=== PATIENT | male | born 1965 | race Caucasian/White ===

== ENCOUNTER 2021-08-23 15:46 | Inpatient (IN) | payer OTHER, SELFPAY ==
--- NOTE | ~2021-08-23 | CT_ITS ---
EXAMINATION: CT diagnostic chest w con DATE: 08/23/2021 19:43 INDICATION: Abnormal Chest CT 6 months ago. Weakness TECHNIQUE: Computed tomography (CT) of the chest was performed with 70 mL Omnipaque-350 intravenous c ontrast. Additional 3D reconstructions utilizing coronal maximum intensity projection (MIP) were perf ormed. Automated exposure control and iterative reconstruction technique were employed. The dose-aaliyah th product was 153.03 mGy-cm. COMPARISON: None FINDINGS: Mild emphysema. Diffuse mild bronchiectasis throughout both lungs with bronchial wall thickening and scattered mucous plugging. There is additional bubbly mucus throughout the trachea and bilateral main stem bronchi. Scattered subcentimeter solid and subsolid pulmonary nodules involving all lobes of bot h lungs, the largest in the right upper lobe measuring 8mm. More numerous tiny centrilobular nodules with tree-in-bud pattern in the left lower lobe and to lesser degree in the lingula consistent with e ndobronchial spread of disease. Poorly defined approximately 1.5 x 2.0 cm region of consolidation wit h air bronchograms in the left lower lobe. No pulmonary edema, pleural effusion or pneumothorax. Hear t size is normal. Mild likely reactive right hilar lymphadenopathy. Ectatic ascending thoracic aorta which measures up to 3.7 cm in maximal diameter. Normal caliber descending thoracic aorta. There is c alcified atherosclerosis of the visualized proximal abdominal aorta as well as at the origin of the s uperior mesenteric and bilateral renal arteries. Additional atherosclerotic disease with severe moder ate (50-70%) stenosis along the splenic artery. Moderate thoracic spondylosis with chronic appearing mild anterior wedging of several lower thoracic vertebral bodies. IMPRESSION: 1. Diffuse bronchiectatic changes with bronchial wall thickening, scattered mucous in the bronchi, tr ee-in-bud opacities and multiple subcentimeter solid and some solid nodules scattered throughout both lungs most likely acute on chronic bronchopneumonia. 2. Mild emphysema. 3. Ectatic ascending thoracic aorta measuring up to 3.7 cm. 4. Likely reactive mild right hilar lymphadenopathy. Reviewed, dictated and finalized at location A. RETE WORKER IMPRESSION: 1. Diffuse bronchiectatic changes with bronchial wall thickening, scattered muc ous in the bronchi, tree-in-bud opacities and multiple subcentimeter solid and some solid nodules scattered throughout both lungs most likely acute on chronic bronchopneumonia. 2. Mild emphysema. 3. Ectatic ascending thoracic aorta measuring up to 3.7 cm. 4. Likely reactive mild right hilar lymphadenopathy.
--- NOTE | ~2021-08-23 | XR_ITS ---
EXAMINATION: XR chest 1V portable DATE: 08/24/2021 05:47 INDICATION: Intubation. TECHNIQUE: A single frontal view of the chest was obtained. COMPARISON: Chest single view 08/23/2021, chest CT 08/23/2021 FINDINGS: The lungs are hyperexpanded with lucencies, consistent with emphysema. There are mild airsp jess opacities in the upper lobes and left lower lobe. No pleural effusion or pneumothorax. The heart size is normal. The endotracheal tube tip is 6.0 cm above the lizy. There are old healed right rib fractures. IMPRESSION: 1. Mild airspace opacities in the upper lobes and left lower lobe, consistent with pneumonia. 2. Emphysema. Reviewed, dictated and finalized at location A. SANDER IMPRESSION: 1. Mild airspace opacities in the upper lobes and left lower lobe, consistent w ith pneumonia. 2. Emphysema.
--- NOTE | ~2021-08-23 | XR_ITS ---
EXAMINATION: XR chest 1V portable INDICATION: Weakness TECHNIQUE: Portable AP chest at 1659 hours COMPARISON: 09/12/2018 FINDINGS: The lungs are hyperinflated but free of acute opacities. Healed right-sided rib fractures a re noted. There is no pleural effusion or pneumothorax. The cardiomediastinal silhouette is normal. IMPRESSION: 1. Hyperinflation without acute cardiopulmonary abnormality. Reviewed, dictated and finalized at location B. NG MACHINE FEEDER
--- NOTE | 2021-08-23 16:03 | ECG_ITS ---
Measurements Intervals [place] Rate: 89 P: 264 OR: 150 QRS: 131 QRSD: 97 T: 88 QT: 340 QTc: 415 Interpretive Statements BASELINE ARTIFACT ECTOPIC ATRIAL RHYTHM NO PREVIOUS ECG AVAILABLE FOR COMPARISON Electronically Signed On 08-24-2021 12:15:49 FRONT END DRUPAL DEVELOPER by Jaime Morton M.D.
[2021-08-23] MEDS: LACTATED RINGERS 1,000 ML 999 ML IV CONT (16:05)
[2021-08-23 16:07] VITALS: BP 91/76; PULSE 87; RESP 22; TEMP 35.7; O2SAT 94
--- NOTE | 2021-08-23 16:22 | ED.WEAKNESS ---
HPI - Weakness General Chief complaint: Unspecified Stated complaint: AMB Time Seen by Provider: 08/23/21 15:55 Source: patient, family, EMS and RN notes reviewed Mode of arrival: EMS Limitations: physical limitation History of Present Illness HPI Narrative: I interviewed the ex- who has been trying to take care of the patient. She states that he had double pneumonia proximally 8-10 months ago and was at [facility]. He then went home with his son for 2-3 weeks and then wanted to go back home. He apparently has been at home for the last 6-8 months and lays in bed does not eat barely drinks. Family thinks that he is significantly depressed due to the loss of his mother, daughter and a brother all in the last 2 years. He was being cared for by a girlfriend but apparently they have . Ex- states she has been trying to talk him into coming to the hospital for the last 3 days. EMS reports that patient was tachycardic in the 120s and had blood pressure 75/30. EMS gave him 1 L of LR in route which improved his blood pressure. EMS also reported that he has pulmonary congestion with a wet cough. He reports he has some kind of a heart problem. He denies being suicidal. MD Complaint: generalized weakness Onset (ago): month(s) (4) Duration: constant and progressively worsening Location: generalized Migration: none Severity: severe Relieving factors: none Exacerbating factors: movement and exertion Associated symptoms: loss of appetite Related Data Home Medications Medication Instructions Recorded Confirmed carvedilol 3.125 mg PO DAILY 08/23/21 08/23/21 citalopram 20 mg PO DAILY 08/23/21 08/23/21 fluticasone propion-salmeterol 500 inh INHALATION BID 08/23/21 08/23/21 [Advair Diskus] ipratropium-albuterol [Combivent 1 puff INHALATION Q6H PRN 08/23/21 08/23/21 Respimat] lisinopril 5 mg PO DAILY 08/23/21 08/23/21 montelukast 10 mg PO DAILY 08/23/21 08/23/21 pantoprazole 40 mg PO DAILY 08/23/21 08/23/21 theophylline 400 mg PO DAILY 08/23/21 08/23/21 torsemide 20 mg PO DAILY 08/23/21 08/23/21 umeclidinium [Incruse Ellipta] 62.5 inh INHALATION DAILY 08/23/21 08/23/21 Allergies Allergy/AdvReac Type Severity Reaction Status Date / Time morphine Allergy Unknown Verified 08/23/21 16:14 Review of Systems Review of Systems: review of systems obtained from ex- Constitutional: Constitutional: Denies chills and Denies fever(s) Respiratory: Respiratory: Denies cough Gastrointestinal: Gastrointestinal: Denies nausea and Denies vomiting [facility] Past Medical History Medical History (Updated 08/23/21 @ 20:00 by Background Daann) Aortic valve disease Congestive heart failure COPD (chronic obstructive pulmonary disease) Depression History of CVA (cerebrovascular accident) Hypertension Social History Social History (Updated 08/23/21 @ 16:38 by Joseph Bailey MD) Smoking packs per day: 1 Smoking cigarettes per day: 20.0 Smoking status: Current every day smoker Exam Const: General: alert, awake and ill appearing chronically Nutritional Appearance: cachectic, malnourished and thin Orientation/consciousness: patient oriented x3 HENMT: Head: normal to inspection Ears: external ears normal Mouth: Yes dry mucous membranes Eyes: Conjunctivae: conjunctivae normal Pupils: Equal, round and reactive pupils present EOM: EOMs intact bilaterally Neck: Neck: normal visual inspection and no meningeal signs Resp: Effort & Inspection: tachypneic Auscultation: crackles diffuse and rhonchi throughout Cardio: Rate: regular rate Rhythm: regular rhythm GI: GI Palp: Yes Soft to palpation, No Tenderness to palpation present (GI) and No Guarding due to palpation present (GI) Auscultation: normal bowel sounds Back/Spine/Pelvis: Cervical Spine: cervical ROM normal Thoracic/Lumbar Spine: thoraco-lumbar ROM normal Skin: General skin exam: abnormal elasticity, pallor and turgor decreased Neuro: Gen
--- NOTE | 2021-08-23 16:28 | PC.NURSE ---
Unable to obtain EKG at this time.
[2021-08-23 16:58] LABS: Basophils Absolute Auto 0.01 K/mm3 (0.00-0.10); Basophils Percent Auto 0.1 % (0.0-1.0); Hematocrit 47.4 % (40.0-54.0); Hemoglobin 15.9 g/dL (14.0-18.0); Immature Granulocyte Absolute 0.02 K/mm3 (0.00-0.00); Immature Granulocyte Percent A 0.3 % (0.0-0.0); Lymphocytes Absolute Auto 0.78 K/mm3 (1.10-4.50); Lymphocytes Percent Auto 10.8 % (18.0-42.0); Mean Corpuscular HGB Conc 33.5 g/dL (32.0-36.0); Mean Corpuscular Hemoglobin 31.4 pg (27.0-31.0); Mean Corpuscular Volume 93.5 fL (78.0-102.0); Mean Platelet Volume 10.4 fl (8.7-11.0); Monocytes Absolute Auto 0.45 K/mm3 (0.10-0.90); Monocytes Percent Auto 6.2 % (2.0-11.0); Neutrophils Percent Auto 82.6 % (50.0-70.0); Platelet Count Result 150 K/mm3 (150-420); Red Blood Count 5.07 M/mm3 (4.70-6.10); Red Cell Distribution Width 12.9 % (11.6-14.4); White Blood Count 7.2 K/mm3 (4.8-10.8)
[2021-08-23 17:10] LABS: INR 1.2; Partial Thromboplastin Time 32.4 SEC (23.90-30.70); Prothrombin Time 12.8 Seconds (9.50-12.10)
[2021-08-23 17:11] LABS: Alanine Aminotransferase 17 U/L (16-63); Alkaline Phosphatase 97 U/L (46-116); Anion Gap 4 mmol/L (8-16); Aspartate Amino Transferase 23 U/L (15-37); Bilirubin,Total 0.6 mg/dL (0.00-1.00); Blood Urea Nitrogen 43 mg/dL (7-18); CRP 8.1 mg/dL (0.0-0.9); Calcium 9.1 mg/dL (8.5-10.1); Carbon Dioxide 41 mmol/L (21-32); Chloride 85 mmol/L (98-108); Estimated CRCL calculation 33 ml/min; Estimated Glomerular Filt Rate > 60; Glucose 98 mg/dL (70-99); Osmolality Calculated 280 mOsm/kg (285-295); Potassium 4.6 mmol/L (3.5-5.1); Sodium 130 mmol/L (136-145); Total Protein 6.3 g/dL (6.4-8.2)
[2021-08-23 17:16] LABS: Lactic Acid Reflex 3.7 mmol/L (0.4-2.0)
[2021-08-23 18:05] LABS: Add Urine Microscopic? NO; Appearance Urine Clear (Clear); Bilirubin Urine Negative (Negative); Blood Urine Negative (Negative); Color Urine Yellow (Yellow); Glucose Urine UA Negative (Negative); Ketones Urine Negative (Negative); Leukocyte Esterase Ur Negative LEU/UL (Negative); Nitrate Urine Negative (Negative); Protein Urine Negative (Negative); Specific Grav Ur <= 1.005 (1.010-1.020); Urobilinogen Urine 0.2 mg/dL (0.2-1.0); pH Urine 5.5 (5.0-8.0)
[2021-08-23 18:24] VITALS: BP 133/117; PULSE 113; RESP 24; O2SAT 96
[2021-08-23] MEDS: HYDROmorphone HCL INJ (*CRX) 2 MG/ML VIAL 0.5 MG IV PUSH (18:25)
[2021-08-23] MEDS: SODIUM CHLORIDE 0.9% IV 1,000 ML 75 ML IV CONT (18:41)
[2021-08-23 18:55] LABS: NT Pro B Type Natriuretic Pept 454 pg/mL (0-125)
--- NOTE | 2021-08-23 19:05 | PC.NURSE ---
Floor and registration notified of pt full admission status. Room assignment of 207 received.
[2021-08-23 19:28] LABS: Lactic Acid Reflex 3.7 mmol/L (0.4-2.0)
--- NOTE | 2021-08-23 19:32 | PC.NURSE ---
Phone report given to Arleen, 2nd floor RN.
--- NOTE | 2021-08-23 20:15 | ADMGEN ---
This patient, Cipriano Guzman, was admitted to 2nd Floor Room 207-2. Patient/family oriented to hospital policies and general routines including ID bracelet, bed and alarms, pain management, procedures, bathroom and other care routines, personal items, smoking policy, room service/diet, and visiting hours. Information on how to activate the Rapid Response Team has been discussed. Patient/Family are encouraged to report perceived risks to care and to ask questions if they do not understand what they are told or what they should do.
[2021-08-23 20:30] VITALS: BMI 11.8
[2021-08-23 21:15] VITALS: O2SAT 93
[2021-08-23 21:18] VITALS: PULSE 98; RESP 18; O2SAT 93
[2021-08-23 22:32] LABS: Reflex Lactic Acid Yes or No Add Lactic
[2021-08-24] VITALS: BP 94/76; PULSE 85; RESP 22; TEMP 36.7
--- NOTE | 2021-08-24 00:10 | PC.NURSE ---
Patient's vital signs were taken at 0000 on 08/24/2021. Although patient's O2 sats were taken using the finger probe, with results of 78% with room air. 3 L of O2 were placed on patient, and his O2 sats went up to 93%. It was not possible to get an O2 sat on him, using the finger probe, ear probe, and forehead probe. Respiratory was called, and they indicated that it was very difficult to get O2 sats on him in the ED. We notified the [employer] [facility] coldfusion, to ask for direction, as his nail beds are blue, his skin is cold, and his condition appears to be worsening.
--- NOTE | 2021-08-24 00:46 | PC.NURSE ---
Attempted to contact Edenilson Feng regarding pt's condition. No answer and message was left on pt's voice mail.
--- NOTE | 2021-08-24 00:59 | PC.NURSE ---
Attempted again to contact Edenilson Feng, but no answer.
--- NOTE | 2021-08-24 01:02 | PC.NURSE ---
Attempted to contact Pete Romero NP but unable to reach her. Message left on voice mail.
--- NOTE | 2021-08-24 01:22 | PC.NURSE ---
Call to son Edil Sydneefelix giving update on father's declining condition. Son stated he wanted everything possible done for his father. He lives out of town but he will be here as soon as possible.
[2021-08-24 01:30] LABS: Base Excess ABG 13.7 mmol/L (0-2); HCO3 ABG 43.8 mmol/L (23-29); Oxygen Content ABG 15.1 %vol (16.0-22.0); Oxygen Saturation ABG 74.6 % (95-97); Oxyhemoglobin 73.2 % (94-100); Total Hemoglobin 14.7 g/dL (12.0-18.0); pH ABG 7.34 (7.35-7.45)
[2021-08-24 01:33] LABS: Device NASAL CANNULA; Modified Allen's Test Pass; PCO2 ABG 83.9 mmHg (35-45); Site Drawn LEFT RADIAL
[2021-08-24 01:34] LABS: PO2 ABG 44.3 mmHg (80-90)
--- NOTE | 2021-08-24 01:35 | PC.NURSE ---
Blood gases were drawn, as it was not possible to get an O2 sat on the patient. Results indicate a critical value for CO2 of 83.9, which was called in to the Nurse Practitioner director of aviation, and also to Dr. Bailey, the ED Doctor. With that high of a CO2 level, and his instabiliy at this time, the Respiratory Therapist stated that the nasal canula at 5 L O2 is the best way to get oxygen into his system, without him losing his drive to breathe.
--- NOTE | 2021-08-24 01:47 | PC.NURSE ---
Attempted to contact Edenilson Feng but no answer. Lab results left on voice mail.
--- NOTE | 2021-08-24 01:52 | WPDPN ---
Progress Note: A&P Assessment and Plan (1) Adult failure to thrive: Code(s): R62.7 - Adult failure to thrive Status: Acute Assessment and Plan: Continue fluids. Contact family and discuss further treatment options. At this point patient remains a full code. (2) COPD (chronic obstructive pulmonary disease): Code(s): J44.9 - Chronic obstructive pulmonary disease, unspecified Status: Inactive Assessment and Plan: Get at ABG results. ABG results show a significant hypercarbia. Patient will be started on high-flow nasal cannula. further decisions of care and intervention based on response to therapy. Subjective Date/time seen: 08/24/21 01:42 called to the bedside because nurses were not able to get a oxygen saturations finger has forehead or ear. Said that he is having rapid shallow breaths and decreased responsiveness. On my arrival patient is having shallow gurgling breaths. Cardiopulmonary says that he wakes up responds when she suctions him. I am able to call his name and he responds opens his eyes and turns towards me. While I am in the room patient is getting an ABG. Floor nurse said they had tried to contact the hospitalist VAISHNAVI but was unsuccessful. Exam Narrative: Patient with shallow respirations. Lungs show upper airway transmissions with scattered rhonchi unchanged from his exam in the emergency room. Heart regular rate and rhythm no rubs or murmurs could be appreciated. Extremities are cyanotic cold again unchanged from the emergency room exam. Objective Data Vital Signs Vital Signs: Vital Signs - 24 hr 08/23/21 16:07 08/23/21 18:24 08/23/21 21:18 Temperature 35.7 C L Pulse Rate 87 113 H 98 Respiratory Rate 22 H 24 H 18 Blood Pressure 91/76 L 133/117 H Pulse Oximetry 94 96 93 Intake/Output Intake/Output: Intake & Output 08/21/21 08/22/21 08/23/21 08/24/21 23:59 23:59 23:59 23:59 Intake Total 1050 Balance 1050 Meds/Results Medications: Active Medications Generic Name Dose Route Start Last Admin Trade Name Freq PRN Reason Stop Dose Admin Benzonatate 200 mg 08/23/21 20:03 Benzonatate 100 Mg Capsule PO TID PRN cough Carvedilol 3.125 mg 08/24/21 09:00 Carvedilol 3.125 Mg Tablet PO DAILY [facility] Citalopram Hydrobromide 20 mg 08/24/21 09:00 Citalopram Hydrobromide 20 Mg Tablet PO DAILY [facility] Sodium Chloride 1,000 mls @ 75 mls/hr 08/23/21 18:33 08/23/21 18:41 Normal Saline Iv IV CONT 08/24/21 07:52 75 mls/hr .[id number] STA Administration Piperacillin/Tazobactam/Dextrose 3.375 gm in 50 mls @ 100 mls/hr 08/23/21 21:00 08/23/21 22:00 Zosyn 3.375 Gm/D5w 50ml Pm IVPB Infused Q8HR [facility] Infusion Lisinopril 5 mg 08/24/21 09:00 Lisinopril 5 Mg Tablet PO DAILY [facility] Montelukast Sodium 10 mg 08/24/21 09:00 Montelukast Sodium 10 Mg Tablet PO DAILY [facility] Ondansetron HCl 4 mg 08/23/21 19:42 Ondansetron Inj 4 Mg/2 Ml Vial IV PUSH Q6H PRN Nausea And Vomiting Pantoprazole Sodium 40 mg 08/24/21 09:00 Pantoprazole 40 Mg Tablet PO DAILY [facility] Fluticasone/Salmeterol 1 puff 08/24/21 06:30 Salmet Xinaft/Flutic Propin 500 Mcg/50 Mcg Inh Cap INHALATION Q12HRT [facility] Theophylline 400 mg 08/24/21 09:00 Theophylline Anhydrous 200 Mg Er 24 Hr Capsule PO DAILY [facility] Torsemide 20 mg 08/24/21 09:00 Torsemide 20 Mg Tablet PO DAILY [facility] Umeclidinium [place] 62.5 puff 08/24/21 09:00 Umeclidinium [place] 62.5 Mcg Ellipta INHALATION DAILY [facility] Radiology Results: ITS Impressions Chest X-Ray 08/23/21 17:05 IMPRESSION: 1. Hyperinflation without acute cardiopulmonary abnormality. Chest CT 08/23/21 19:44 IMPRESSION: 1. Diffuse bronchiectatic changes with bronchial wall thickening, scattered mucous in the bronchi, tree-in-bud opacities and multiple subcentimeter solid and some solid nodules scattered throughout both l
--- NOTE | 2021-08-24 01:57 | PC.NURSE ---
Received orders from Dr. Bailey to start [employer] oxygen
[2021-08-24 02:10] LABS: Base Excess ABG 13.7 mmol/L (0-2); Oxygen Content ABG 15.5 %vol (16.0-22.0); Oxygen Saturation ABG 77.4 % (95-97); Oxyhemoglobin 75.7 % (94-100); Total Hemoglobin 14.6 g/dL (12.0-18.0); pH ABG 7.33 (7.35-7.45)
[2021-08-24 02:12] LABS: PCO2 ABG 85.6 mmHg (35-45)
[2021-08-24 02:14] LABS: Device NASAL CANNULA; Modified Allen's Test Pass; Site Drawn RIGHT RADIAL
[2021-08-24 02:17] VITALS: RESP 20
--- NOTE | 2021-08-24 02:58 | PC.NURSE ---
Edenilson Feng returned phone message and said that she would be coming in to see the patient vilmafrancis.
--- NOTE | 2021-08-24 03:05 | PC.NURSE ---
Edenilson Feng called to get pt's vital signs, lab values and an update on pt's condition. Report given at this time.
[2021-08-24 03:10] VITALS: BP 112/73; PULSE 83; RESP 22; TEMP 36.5
--- NOTE | 2021-08-24 03:10 | PC.NURSE ---
Nurse Practitioner returned call. Asked for updated vitals, which were provided. PROGRAM FACILITATOR indicated that patient will be transferred to a higher level of acuity hospital. Referrals were made starting with [facility].
--- NOTE | 2021-08-24 04:01 | PC.NURSE ---
Edenilson Feng NP, called to give stat lab orders at this time.
--- NOTE | 2021-08-24 04:10 | PC.NURSE ---
Edenilson Feng NP, here to see patient.
[2021-08-24 04:20] LABS: Basophils Absolute Auto 0.02 K/mm3 (0.00-0.10); Basophils Percent Auto 0.2 % (0.0-1.0); Hematocrit 45.7 % (40.0-54.0); Hemoglobin 14.9 g/dL (14.0-18.0); Immature Granulocyte Absolute 0.03 K/mm3 (0.00-0.00); Immature Granulocyte Percent A 0.4 % (0.0-0.0); Lymphocytes Absolute Auto 0.76 K/mm3 (1.10-4.50); Lymphocytes Percent Auto 8.9 % (18.0-42.0); Mean Corpuscular HGB Conc 32.6 g/dL (32.0-36.0); Mean Corpuscular Hemoglobin 30.9 pg (27.0-31.0); Mean Corpuscular Volume 94.8 fL (78.0-102.0); Mean Platelet Volume 10.3 fl (8.7-11.0); Monocytes Absolute Auto 0.77 K/mm3 (0.10-0.90); Neutrophils Percent Auto 81.5 % (50.0-70.0); Platelet Count Result 143 K/mm3 (150-420); Red Blood Count 4.82 M/mm3 (4.70-6.10); Red Cell Distribution Width 13.1 % (11.6-14.4); White Blood Count 8.6 K/mm3 (4.8-10.8)
[2021-08-24] MEDS: LORazepam INJ (*CRX) 2 MG/ML VIAL 0.5 MG IV PUSH (04:37)
[2021-08-24 04:40] LABS: Alanine Aminotransferase 15 U/L (16-63); Albumin Level 2.7 g/dL (3.4-5.0); Alkaline Phosphatase 93 U/L (46-116); Anion Gap 2 mmol/L (8-16); Aspartate Amino Transferase 32 U/L (15-37); Bilirubin,Total 0.7 mg/dL (0.00-1.00); Blood Urea Nitrogen 42 mg/dL (7-18); Calcium 8.4 mg/dL (8.5-10.1); Carbon Dioxide 41 mmol/L (21-32); Chloride 87 mmol/L (98-108); Estimated CRCL calculation 45 ml/min; Estimated Glomerular Filt Rate > 60; Glucose 74 mg/dL (70-99); Osmolality Calculated 279 mOsm/kg (285-295); Potassium 4.5 mmol/L (3.5-5.1); Sodium 130 mmol/L (136-145); Total Protein 6.1 g/dL (6.4-8.2); Troponin I 58.2 ng/L (0.00-60.4)
[2021-08-24 04:43] LABS: Lactic Acid 1.6 mmol/L (0.4-2.0)
[2021-08-24 04:44] LABS: Magnesium 0.4 mg/dL (1.8-2.4)
[2021-08-24 04:45] VITALS: BP 103/87; PULSE 86; RESP 24; TEMP 36.7; O2SAT 78
[2021-08-24 04:51] VITALS: PULSE 86; RESP 24
[2021-08-24] MEDS: MAGNESIUM SULF 4 GM/WATER100ML 4 GM/100 ML BAG IVPB (05:42)
[2021-08-24 05:53] VITALS: RESP 24
--- NOTE | 2021-08-24 05:53 | P.RRN_ITS ---
Critical Care Event Note Summary Code activated: No Narrative: This case had a high probability of a clinically significant, sudden, or life threatening deterioration of this patient's condition which required my full and direct attention, intervention and personal management. Patient continued to have shallow respirations. Hospitalist Senait Feng APN call to have the patient transferred to another facility to a higher level of care. They requested patient be intubated prior to transfer. Patient was pain position for intubation. [place] scope used for assistance with intubation. Patient been placed on high-flow nasal cannula prior to intubation. 10 mg of etomidate with 50 mg of succinylcholine is given for sedation and paralyzation. Mac 3 glide scope blade used for visualization suction of secretions cleared, vocal cords visualized, bougie used to pass over the vocal cords with minimal cricoid pressure. 6.5 tube then passed over the bougie, balloon is inflated placement 20 cm at the lips noted ET tube nguyen placed without difficulty. Equal breath sounds on both sides auscultated. Post intubation chest x-ray ordered. Patient tolerated procedure well without complication. Critical care time: less than 30 mins
[2021-08-24 05:55] LABS: SARS-CoV-2 Ag Negative (Negative)
--- NOTE | 2021-08-24 06:15 | PM.SD2 ---
Same Day Admit/Disch: HPI History of Present Illness Chief complaint: Failure to thrive/hypotension/dehydration/lactiaci Narrative: Cipriano Guzman is a 55 year old male Presented to the emergency room via ambulance that was called by his family . The ambulance found him emaciated and laying on he couch with hypotension. According to notes from the emergency room forr the last 6-8 months pt has been in bed does not eat barely drinks. Family thinks that he is significantly depressed due to the loss of his mother, daughter and a brother all in the last 2 years. He was being cared for by a girlfriend but apparently they have . Family just called EMS as he has refused for the past several days. EMS reported that patient was tachycardic in the 120s and had blood pressure 75/30. EMS gave him 1 L of LR in route which improved his blood pressure. EMS also reported that he has pulmonary congestion with a wet cough. He reports he has some kind of a heart problems. Per report from the emergency room patient blood pressure had improved he was Alert and orientated remains mal nutrition patient was in need of mcc placement and physical therapy and or swing bed. Labs on admission WBC 7.2, hemoglobin 15.9, platelet 150, sodium 130, BUN 43, lactic 3.7 CRP 8.4, BNP 454, urine negative, Covid negative. Patient is a full code and is admitted as an inpatient After review labs started patient on Zosyn due to reviewing CT scan showed acute on chronic pneumonia mild emphysema PMFSH Past Medical History Medical History Aortic valve disease Congestive heart failure COPD (chronic obstructive pulmonary disease) Depression History of CVA (cerebrovascular accident) Hypertension Social History Social History Smoking packs per day: 1 Smoking cigarettes per day: 20.0 Years smoked: 40 Smoking pack-years: 40.00 Smoking status: Current every day smoker Tobacco type: cigarettes Second hand tobacco smoke exposure: Yes Alcohol intake: former Substance use: current Substance use type: marijuana Spiritual care concerns: No Same Day Admit/Disch: Med Pre-admit Medications Home Medications Medication Instructions Recorded Confirmed Type carvedilol 3.125 mg PO DAILY 08/23/21 08/23/21 History citalopram 20 mg PO DAILY 08/23/21 08/23/21 History fluticasone propion-salmeterol 500 inh INHALATION BID 08/23/21 08/23/21 History [Advair Diskus] ipratropium-albuterol [Combivent 1 puff INHALATION Q6H PRN 08/23/21 08/23/21 History Respimat] lisinopril 5 mg PO DAILY 08/23/21 08/23/21 History montelukast 10 mg PO DAILY 08/23/21 08/23/21 History pantoprazole 40 mg PO DAILY 08/23/21 08/23/21 History theophylline 400 mg PO DAILY 08/23/21 08/23/21 History torsemide 20 mg PO DAILY 08/23/21 08/23/21 History umeclidinium [Incruse Ellipta] 62.5 inh INHALATION DAILY 08/23/21 08/23/21 History Exam Narrative: GENERAL:Ill-appearing, emaciated, and in acute distress. HEAD:Normocephalic, atraumatic. EYES: PERRLA . ENT: Nares clear, no rhinorrhea or epistaxis. Mucous membranes dry. NECK: Supple. CHEST: course and wet to auscultation. respiratory distress shallow breathing. HEART: Regular rate and rhythm. Irregular arrhythmias. Decreased peripheral pulses all extremities cold and discolored morning unable to feel pulses . ABDOMEN: Soft, nontender, nondistended, sucken in normal active bowel sounds. EXTREMITIES: decreased range of motion. No edema. SKIN: cool, dry, no rash. NEURO: No focal deficits. Alert nonverbal just moaning and samir nod his head slightly to answer my quesition he nodded yes whe I asked if he was in pain DS: Data Data Completed and Pending Labs on day of discharge: Labs from last 24 hours 08/24/21 08/24/21 08/24/21 05:38 04:16 04:16 WBC 8.6 RBC 4.82 Hgb 14.9 Hct 45.7 MCV 9
--- NOTE | 2021-08-24 06:15 | PC.NURSE ---
Patient was intubated by Dr. Bailey, attended by Respiratory Therapist, ED Nurse, Charge Nurse, and two staff nurses. Intubation set up began at 0514, with supplies from the crash cart, the ED, and 2nd Floor. Dr. Bailey used a 6.5 tube. Patient was given 5 mg. of etomadate, followed by 50 mg. of succinylcholine at 0521. Intubation tube was placed at 0523. Pulse was initally difficult to fine, but patient was in sinus arrythmia at 0524, followed by a junctional rhythm at 0528. Procedure was completed at 0530, at which time Dr. Bailey left for the ED. The respiratory therapist continued bagging until she was relieved to set up the machile. That was completed at 0532. X-ray arrived to confirm placement at 0533. Patient was successfully intubated and will be transferrred to [facility] by
--- NOTE | 2021-08-24 06:16 | PC.NURSE ---
Spoke to [facility] to check on when they will be arriving; They said they had a 17 minute ETA at this time.
--- NOTE | 2021-08-24 07:20 | PC.NURSE ---
Patient was transferred to [facility] via [facility]. Care was transferred to [facility] for the trip. Patient was on a ventilator with oxygen, had cardiac monitoring, and was attended to by the flight nurse.
--- NOTE | 2021-08-26 12:19 | PC.NURSE ---
discharge call back to [facility] and reported patient on 08/25/21
== END 2021-08-24 07:20 | disposition short-term general hospital (02) | DRG 208 ==
LOC: CHSED 18:48 → CHS2ND 20:00
PROVIDERS: Nurse Practitioner Family; Admitting Provider Internal Medicine; Emergency Provider Emergency Medicine; PCP Family Medicine; Visit Provider Internal Medicine
DX: J18.9 Pneumonia, unspecified organism (principal); J96.00 Acute respiratory failure, unspecified whether with hypoxia or hypercapnia; E43 Unspecified severe protein-calorie malnutrition; J44.0 Chronic obstructive pulmonary disease with (acute) lower respiratory infection; Z68.1 Body mass index [BMI] 19.9 or less, adult; J44.9 Chronic obstructive pulmonary disease, unspecified; E87.1 Hypo-osmolality and hyponatremia; I35.8 Other nonrheumatic aortic valve disorders; F17.200 Nicotine dependence, unspecified, uncomplicated; I11.0 Hypertensive heart disease with heart failure; I50.9 Heart failure, unspecified; E86.0 Dehydration; E83.42 Hypomagnesemia; R62.7 Adult failure to thrive; F17.210 Nicotine dependence, cigarettes, uncomplicated; F32.A Depression, unspecified; Z20.822 Contact with and (suspected) exposure to COVID-19
CPT/HCPCS: 31500; 36415; 36600; 71045; 71260; 80053; 81003; 82803; 82805; 83605; 83735; 83880; 84484; 85025; 85610; 85730; 86140; 87040; 87426; 93005; 94002; 96361; 96374; 99285; C9803; J0330; J1170; J2060; J2543; J3475; J7030; J7040; J7120; Q9967